=== PATIENT | female | born 1975 | race Caucasian/White ===

== ENCOUNTER 2025-01-09 18:50 | Observation (INO) | payer OTHER ==
[2025-01-09] MEDS ORDERED: ACETAMINOPHEN INJECTION 100 ML ONE (19:59)
[2025-01-09] MEDS: ACETAMINOPHEN 1000 MG/100 ML BAG IVPB ONE (20:32)
[2025-01-09] MEDS: SODIUM CHLORIDE 1,000 ML IV STA (20:32)
[2025-01-09 20:43] LABS: BASO % 0.8 % (0-2.0); EOS % 0.5 % (0-4.5); HEMATOCRIT 44.7 % (32.4-45.2); HEMOGLOBIN 15.2 GM/dL (10.7-15.3); LYMPH % 19.3 % (8-40); MCHC 34.1 g/dl (32.0-36.0); MEAN CELL VOLUME 88.1 fl (80-96); MEAN PLT VOLUME 7.2 fl (7.5-11.1); MONO % 10.6 % (3.8-10.2); NEUT % 68.8 % (42.8-82.8); PLATELET COUNT 282 10^3/uL (134-434); RBC 5.08 M/mm3 (3.60-5.2); RDW 13.5 % (11.6-15.6); WHITE BLOOD COUNT 6.1 K/mm3 (4.0-10.0)
[2025-01-09 20:50] LABS: INR 1.2 (0.83-1.09); PROTHROMBIN TIME (PATIENT) 13.2 SEC (9.7-13.0)
[2025-01-09 20:54] LABS: POTASSIUM 4.1 mmol/L (3.5-5.1)
[2025-01-09 20:55] LABS: CALCIUM 9.2 mg/dL (8.5-10.1)
[2025-01-09 20:56] LABS: ALBUMIN 3.9 g/dl (3.4-5.0); BLOOD UREA NITROGEN 10.8 mg/dL (7-18)
[2025-01-09 20:58] LABS: VENOUS BASE EXCESS -2.5 mmol/L (-2-2); VENOUS O2 SATURATION 56.9 % (70-80); VENOUS PCO2 40.3 mmHg (38-52); VENOUS PH 7.366 (7.310-7.410)
[2025-01-09 20:59] LABS: CREATININE 0.8 mg/dL (0.55-1.3)
[2025-01-09 21:01] LABS: BILIRUBIN,TOTAL 0.5 mg/dL (0.2-1); TOT PROT 8.3 g/dl (6.4-8.2)
[2025-01-09] MEDS ORDERED: KETOROLAC TROMETHAMINE 30 MG/1 ML VIAL ONE (23:40)
[2025-01-09] MEDS: KETOROLAC TROMETHAMINE 30 MG/1 ML VIAL IVPUSH ONE (23:47)
[2025-01-10] MEDS: OSELTAMIVIR PHOSPHATE 75 MG CAPSULE PO SCH (00:45)
[2025-01-10] MEDS ORDERED: CEFTRIAXONE 1 G/50 ML PREMIX 50 ML IVPB ONE (00:50)
[2025-01-10] MEDS: SODIUM CHLORIDE 1,000 ML IV SCH (01:24)
[2025-01-10] MEDS: CEFTRIAXONE 1 G/50 ML PREMIX 50 ML IVPB SCH (01:24)
[2025-01-10] MEDS ORDERED: AZITHROMYCIN IVPB 500 MG/250 ML BAG IVPB ONE (02:02)
[2025-01-10] MEDS: AZITHROMYCIN IVPB 500 MG/250 ML BAG IVPB SCH (02:16)
[2025-01-10] MEDS ORDERED: ALBUTEROL SO4 2.5/IPRATROPIUM 0.5 INH SOL 3 ML VIAL.NEB. NEB PRN (04:48)
[2025-01-10] MEDS ORDERED: ALBUTEROL SO4 2.5/IPRATROPIUM 0.5 INH SOL 3 ML VIAL.NEB. NEB ONE ×2 (06:12→09:57)
[2025-01-10] MEDS ORDERED: predniSONE 20 MG TABLET (UD) ONE ×2 (06:13→09:02)
[2025-01-10] MEDS: predniSONE 20 MG TABLET (UD) PO ONE (06:22)
[2025-01-10] MEDS: ALBUTEROL SO4 2.5/IPRATROPIUM 0.5 INH SOL 3 ML VIAL.NEB. NEB ONE (06:22)
[2025-01-10 06:29] LABS: HEMATOCRIT 42.1 % (32.4-45.2); HEMOGLOBIN 14.4 GM/dL (10.7-15.3); MCH 30.1 pg (25.7-33.7); MCHC 34.1 g/dl (32.0-36.0); MEAN CELL VOLUME 88.2 fl (80-96); PLATELET COUNT 249 10^3/uL (134-434); RBC 4.78 M/mm3 (3.60-5.2); RDW 13.4 % (11.6-15.6); WHITE BLOOD COUNT 2.7 K/mm3 (4.0-10.0)
[2025-01-10 07:21] LABS: CALCIUM 8.8 mg/dL (8.5-10.1); POTASSIUM 3.7 mmol/L (3.5-5.1)
[2025-01-10 07:22] LABS: ALBUMIN 3.4 g/dl (3.4-5.0); BLOOD UREA NITROGEN 13.8 mg/dL (7-18)
[2025-01-10 07:25] LABS: CREATININE 0.7 mg/dL (0.55-1.3)
[2025-01-10 07:27] LABS: BILIRUBIN,TOTAL 0.4 mg/dL (0.2-1); TOT PROT 7.4 g/dl (6.4-8.2)
[2025-01-10 07:45] LABS: HIV INTERPRETATION NEGATIVE (NEGATIVE)
[2025-01-10] MEDS ORDERED: OSELTAMIVIR PHOSPHATE 75 MG CAPSULE ONE (09:03)
[2025-01-10] MEDS: predniSONE 20 MG TABLET (UD) PO SCH (09:53)
[2025-01-10] MEDS: ALBUTEROL SO4 2.5/IPRATROPIUM 0.5 INH SOL 3 ML VIAL.NEB. NEB SCH (09:58)
[2025-01-10] MEDS ORDERED: AZITHROMYCIN IVPB 500 MG in DEXTROSE 5%-WATER - 250 ML IVPB SCH (10:00)
[2025-01-10] MEDS ORDERED: CEFTRIAXONE 1 GM in DEXTROSE 5%-WATER - 50 ML IVPB SCH (10:00)
[2025-01-10 19:59] VITALS: BMI 51.8
[2025-01-10] MEDS: guaiFENesin/D-METHORPHAN TAB.ER.12H PO ONE (22:41)
[2025-01-10] MEDS: ACETAMINOPHEN 325 MG TABLET (FP) PO PRN (22:41)
[2025-01-10] MEDS: BENZOCAINE/MENTH/CETYLPYRD CL 1 EACH LOZENGE MM PRN (22:42)
[2025-01-10] MEDS: POLYETHYLENE GLYCOL (HEALTHYLAX) 3350 17 GM PACKET PO ONE (22:42)
[2025-01-10] MEDS: ENOXAPARIN NA (PORCINE) 40 MG/0.4 ML DISP.SYRIN SQ SCH (22:43)
[2025-01-11] MEDS: LEVOTHYROXINE NA 25 MCG TABLET (FP) PO SCH (06:13)
[2025-01-11] MEDS ORDERED: LEVOTHYROXINE NA 88 MCG TABLET (FP) PO SCH (07:00)
[2025-01-11 07:47] LABS: BASO % 0.4 % (0-2.0); EOS % 0.4 % (0-4.5); HEMATOCRIT 41.2 % (32.4-45.2); HEMOGLOBIN 14.5 GM/dL (10.7-15.3); LYMPH % 44.5 % (8-40); MCH 30.7 pg (25.7-33.7); MCHC 35.2 g/dl (32.0-36.0); MEAN CELL VOLUME 87.1 fl (80-96); MEAN PLT VOLUME 7.4 fl (7.5-11.1); MONO % 11.3 % (3.8-10.2); NEUT % 43.4 % (42.8-82.8); PLATELET COUNT 295 10^3/uL (134-434); RBC 4.73 M/mm3 (3.60-5.2); RDW 13.1 % (11.6-15.6); WHITE BLOOD COUNT 5.2 K/mm3 (4.0-10.0)
[2025-01-11 08:04] LABS: POTASSIUM 4.1 mmol/L (3.5-5.1)
[2025-01-11 08:12] LABS: BLOOD UREA NITROGEN 16.4 mg/dL (7-18); CALCIUM 8.5 mg/dL (8.5-10.1)
[2025-01-11 08:13] LABS: MAGNESIUM 1.9 mg/dL (1.8-2.4)
[2025-01-11 08:15] LABS: CREATININE 0.7 mg/dL (0.55-1.3); PHOSPHOROUS 3.4 mg/dL (2.5-4.9)
[2025-01-11 15:40] VITALS: BP 105/64; PULSE 78; RESP 19; TEMP 97.7
== END 2025-01-11 15:44 | disposition home or self-care (01) ==
LOC: JER 18:50 → JERBED 23:20 → J4W 01-10 16:44
PROVIDERS: ADMIT Internal Medicine; ATTEND Internal Medicine
PROC: 3E0F7GC Introduction of Other Therapeutic Substance into Respiratory Tract, Via Natural or Artificial Opening (ICD-10-PCS; principal; 2025-01-09)
PROC: 3E033NZ Introduction of Analgesics, Hypnotics, Sedatives into Peripheral Vein, Percutaneous Approach (ICD-10-PCS; 2025-01-09)
PROC: 3E03329 Introduction of Other Anti-infective into Peripheral Vein, Percutaneous Approach (ICD-10-PCS; 2025-01-09)
PROC: 3E023GC Introduction of Other Therapeutic Substance into Muscle, Percutaneous Approach (ICD-10-PCS; 2025-01-09)
PROC: 3E0333Z Introduction of Anti-inflammatory into Peripheral Vein, Percutaneous Approach (ICD-10-PCS; 2025-01-09)
DX: J09.X2 Influenza due to identified novel influenza A virus with other respiratory manifestations (principal); R55 Syncope and collapse; E03.9 Hypothyroidism, unspecified; E66.01 Morbid (severe) obesity due to excess calories; R25.1 Tremor, unspecified; Z87.891 Personal history of nicotine dependence
CPT/HCPCS: 0241U-QW; 36415; 70450-TC; 71045-TC-FY; 71275-TC; 74176-TC; 80048; 80053; 82803; 83605; 83735; 84100; 84439; 84443; 84481; 84484; 84703; 85025; 85027; 85379; 85610; 85651; 86140; 86803; 86850; 86900; 86901; 87070; 87205; 87389; 93005; 93010; 94640; 96365; 96367; 96372; 96375; 99285-25; G0378; J0131; Q9967